=== PATIENT | female | born 1960 | race Caucasian/White ===

== ENCOUNTER 2023-08-24 19:40 | Emergency (ER) | payer MEDICARE, OTHER ==
[~2023-08-24] VITALS: Ht 160 cm; Wt 81.6 kg
[~2023-08-24 19:40] MED LIST: ASPI-605 PO; LOSA50TA39 PO; METO50TA16 PO; OMEP20TA5 PO
[2023-08-24 20:24] VITALS: TEMP 98
[2023-08-24] MEDS ORDERED: SUMATRIPTAN SUCCINATE 6 MG/0.5 ML VIAL SQ ONE (20:36)
[2023-08-24] MEDS ORDERED: METOCLOPRAMIDE HCL 10 MG/2 ML VIAL ONE (20:37)
[2023-08-24] MEDS ORDERED: ACETAMINOPHEN ES 500 MG TABLET ONE (20:37)
[2023-08-24] MEDS: IV NS 0.9% 1,000 ML BAG IV ONE (20:51)
[2023-08-24] MEDS: ACETAMINOPHEN ES 500 MG TABLET PO ONE (20:51)
[2023-08-24] MEDS: SUMATRIPTAN SUCCINATE 6 MG/0.5 ML VIAL SQ ONE (20:51)
[2023-08-24] MEDS: METOCLOPRAMIDE HCL 10 MG/2 ML VIAL IV ONE (20:51)
[2023-08-24] MEDS ORDERED: METO-295 PO (21:49)
[2023-08-24] MEDS ORDERED: SUMA100T PO (21:49)
[2023-08-24] MEDS ORDERED: KETO10TA2 PO (21:49)
[2023-08-24 22:03] VITALS: BP 138/100; O2SAT 98
== END 2023-08-24 22:09 | disposition home or self-care (01) ==
LOC: ER 19:43
DX: R51.9 Headache, unspecified (principal); F07.81 Postconcussional syndrome; I10 Essential (primary) hypertension; K21.9 Gastro-esophageal reflux disease without esophagitis; Z88.6 Allergy status to analgesic agent; V89.2XXA Person injured in unspecified motor-vehicle accident, traffic, initial encounter; Y93.89 Activity, other specified; Y92.89 Other specified places as the place of occurrence of the external cause; Y99.8 Other external cause status
CPT/HCPCS: 99285; 96374; 70450; 96361; 96372; J3030; J2765; J7030

== ENCOUNTER 2025-04-19 01:48 | Inpatient (IN) | payer MEDICARE, OTHER ==
[~2025-04-19] VITALS: Ht 160 cm; Wt 81.6 kg
[2025-04-19 01:38] LABS: PLATELET COUNT (AUTO) 168 K/uL (150-450); RED BLOOD CELL COUNT(AUTO) 4.20 MIL/uL (4.0-5.2); RED CELL DISTRIBUTION WIDTH 14.6 % (11.5-15.0); WHITE BLOOD COUNT (AUTO) 3.3 K/uL (4.3-11.0)
[2025-04-19 01:45] LABS: CALCIUM, SERUM 8.8 mg/dL (8.5-10.1); CREATININE 0.6 mg/dL (0.6-1.3); SODIUM SERUM 143.0 mmol/L (136-145); UREA NITROGEN, BLOOD 18.0 mg/dL (7-18)
[~2025-04-19 01:48] MED LIST changes: +KETO10TA2 PO; +METO-295 PO; +SUMA100T PO
[2025-04-19 01:59] LABS: NT-PRO BNP 349.0 pg/mL (0-125)
[2025-04-19] MEDS: ACETAMINOPHEN ES 500 MG TABLET PO ONE (03:09)
[2025-04-19] MEDS ORDERED: NITROGLYCERIN 0.4 MG/TAB BOTTLE SL PRN (05:00)
[2025-04-19] MEDS ORDERED: MAGNESIUM HYDROXIDE 30 ML UDC PO PRN (05:00)
[2025-04-19] MEDS ORDERED: ONDANSETRON HCL/PF 4 MG/2 ML VIAL IVP PRN (05:00)
[2025-04-19] MEDS ORDERED: MAG HYDROX/AL HYDROX/SIMETH 30 ML UDC PO PRN (05:00)
[2025-04-19] MEDS ORDERED: HYDROCODONE/APAP 5/325MG TABLET PO PRN (05:00)
[2025-04-19] MEDS ORDERED: Z GUARD REMEDY 4 OZ OINT TP PRN (05:00)
[2025-04-19] MEDS: ASPIRIN 325 MG TABLET PO ONE (05:19)
[2025-04-19] MEDS ORDERED: ASPIRIN EC 81 MG TABLET.DR PO ONE (08:44)
[2025-04-19] MEDS ORDERED: PANTOPRAZOLE 40 MG TABLET.DR PO ONE (08:44)
[2025-04-19] MEDS ORDERED: LOSARTAN POTASSIUM 50 MG TABLET ONE (08:44)
[2025-04-19] MEDS ORDERED: APIXABAN 5 MG TABLET ONE (08:44)
[2025-04-19] MEDS ORDERED: METOPROLOL TARTRATE 50 MG TABLET ONE (08:45)
[2025-04-19] MEDS: PANTOPRAZOLE 40 MG TABLET.DR PO SCH (08:50)
[2025-04-19] MEDS: LOSARTAN POTASSIUM 50 MG TABLET PO SCH (08:54)
[2025-04-19] MEDS: ASPIRIN EC 81 MG TABLET.DR PO SCH (08:54)
[2025-04-19] MEDS: APIXABAN 5 MG TABLET PO SCH ×2 (08:55→17:30)
[2025-04-19] MEDS ORDERED: ASPIRIN 81 MG TAB.CHEW PO SCH (09:00)
[2025-04-19] MEDS: METOPROLOL TARTRATE 50 MG TABLET PO SCH (10:00)
[2025-04-19] MEDS ORDERED: FERR325T24 PO (10:12)
[2025-04-19] MEDS ORDERED: HYDR-4076 PO (10:12)
[2025-04-19] MEDS ORDERED: OMEP40CA21 PO (10:12)
[2025-04-19] MEDS ORDERED: ROSUVASTATIN CALCIUM PO (10:12)
[2025-04-19] MEDS ORDERED: METO25TA4 PO (10:12)
[2025-04-19] MEDS ORDERED: APIX5TAB PO (10:12)
[2025-04-19] MEDS ORDERED: APIXABAN 5 MG TABLET PO SCH (10:30)
[2025-04-19] MEDS ORDERED: METOPROLOL SUCCINATE 25 MG TAB.SR.24H PO SCH (10:30)
[2025-04-19] MEDS ORDERED: VALSARTAN 80 MG TABLET PO SCH (10:30)
[2025-04-19 16:00] VITALS: BP 147/63; TEMP 98.1; O2SAT 97
[2025-04-19] MEDS: ACETAMINOPHEN 325 MG TABLET PO PRN (17:28)
[2025-04-19 20:10] VITALS: BP 159/83; TEMP 96.8; O2SAT 100
[2025-04-20 00:10] VITALS: BP 159/56; TEMP 97.3; O2SAT 100
[2025-04-20 04:10] VITALS: BP 153/82; TEMP 97.3; O2SAT 100
[2025-04-20 06:00] LABS: PLATELET COUNT (AUTO) 156 K/uL (150-450); RED BLOOD CELL COUNT(AUTO) 4.08 MIL/uL (4.0-5.2); RED CELL DISTRIBUTION WIDTH 14.5 % (11.5-15.0); WHITE BLOOD COUNT (AUTO) 3.7 K/uL (4.3-11.0)
[2025-04-20 06:08] LABS: CALCIUM, SERUM 9.1 mg/dL (8.5-10.1); CREATININE 0.7 mg/dL (0.6-1.3); PHOSPHORUS 4.1 mg/dL (2.5-4.9); SODIUM SERUM 145.0 mmol/L (136-145); UREA NITROGEN, BLOOD 19.0 mg/dL (7-18)
[2025-04-20 06:11] LABS: LDL 145.0 mg/dL (0-99)
[2025-04-20] MEDS ORDERED: OMEPRAZOLE 20 MG CAPSULE.DR PO SCH (07:30)
[2025-04-20 08:00] VITALS: BP 174/78; TEMP 97.8; O2SAT 100
[2025-04-20] MEDS: VALSARTAN 80 MG TABLET PO SCH (08:38)
[2025-04-20] MEDS: METOPROLOL SUCCINATE 25 MG TAB.SR.24H PO SCH (08:38)
[2025-04-20] MEDS: ATORVASTATIN 40 MG TABLET PO SCH (10:35)
[2025-04-20] MEDS: AMLODIPINE BESYLATE 10 MG TABLET PO SCH (10:35)
[2025-04-20] MEDS ORDERED: CT SWABBABLE VALVE TRANS SET 1 EA INFUS.SET MC ONE (11:34)
[2025-04-20] MEDS ORDERED: IV NS 0.9% 250 ML IV ONE (11:34)
[2025-04-20] MEDS ORDERED: IOHEXOL-350 100 ML VIAL IV ONE (11:34)
[2025-04-20 12:00] VITALS: BP 146/66; TEMP 98.6; O2SAT 96
[2025-04-20] MEDS ORDERED: METOPROLOL TARTRATE INJ 5 MG/5 ML AMPUL IVP PRN (12:00)
[2025-04-20] MEDS ORDERED: NITROGLYCERIN 0.4 MG/TAB BOTTLE ONE (12:09)
[2025-04-20] MEDS: NITROGLYCERIN 0.4 MG/TAB BOTTLE SL ONE (12:10)
[2025-04-20 16:00] VITALS: BP 134/63; TEMP 98.7; O2SAT 97
[2025-04-20] MEDS ORDERED: AMLO-213 PO (17:12)
[2025-04-20] MEDS ORDERED: NITR0.4T48 SL (17:12)
[2025-04-20] MEDS ORDERED: VALS80TA31 PO (17:12)
== END 2025-04-20 18:36 | disposition home or self-care (01) | DRG 305 ==
LOC: TELE IN 05:51 → TELE1 14:27
PROVIDERS: ADMIT Nurse Practitioner Acute Care; ATTEND Nurse Practitioner Acute Care
DX: I16.0 Hypertensive urgency (principal); D68.59 Other primary thrombophilia; I82.401 Acute embolism and thrombosis of unspecified deep veins of right lower extremity; I10 Essential (primary) hypertension; E66.01 Morbid (severe) obesity due to excess calories; E78.5 Hyperlipidemia, unspecified; Z98.890 Other specified postprocedural states; Z88.6 Allergy status to analgesic agent; Z79.82 Long term (current) use of aspirin; Z86.718 Personal history of other venous thrombosis and embolism; Z79.899 Other long term (current) drug therapy; Z79.01 Long term (current) use of anticoagulants; R60.9 Edema, unspecified
CPT/HCPCS: 36415; 71045-TC; 75574; 80048-TC; 80061-TC; 83735-TC; 83880; 84100-TC; 84484-TC; 85025-TC; 87081-TC; 93307-TC; G0378; J7050; Q9967